=== PATIENT | male | born 1935 | race African-American/Black ===

== ENCOUNTER 2020-10-04 13:56 | Observation (INO) | payer MEDICARE ==
[2020-10-04 14:45] LABS: ALT (SGPT) 44 U/L (8-55); AST (SGOT) 32 U/L (5-34); Alkaline Phosphatase 42 U/L (40-110); Anion Gap 14 mmol/L (10-20); BUN (Urea Nitrogen) 21 mg/dL (8.4-25.7); Bilirubin, Total 0.3 mg/dL (0.2-1.2); Calc. Creatinine Clearance 0 mL/min (70-130); Calcium 8.5 mg/dL (7.8-10.44); Carbon Dioxide 21 mmol/L (23-31); Chloride 112 mmol/L (98-107); Globulin 3.3 g/dL (2.4-3.5); Glucose 65 mg/dL (83-110); Potassium 4.2 mmol/L (3.5-5.1); Protein, Total 6.3 g/dL (5.8-8.1); Sodium 143 mmol/L (136-145)
[2020-10-04 14:48] LABS: PTT 20.6 sec (22.0-33.0)
[2020-10-04 14:51] LABS: #Monocytes 0.5 10x3/uL (0.0-1.1); #Neutrophils 1.1 10x3/uL (1.5-8.4); %Basophils 0.7 % (0.0-2.0); %Eosinophils 1.4 % (0.0-6.0); %Lymphocytes 39.4 % (18.0-47.0); %Monocytes 17.3 % (0.0-10.0); %Neutrophils 40.5 % (40.0-75.0); Hemoglobin 9.7 g/dL (13.5-17.5); Mean Corpuscular HGB CONC 33.4 g/dL (32.0-36.0); Mean Corpuscular Hemoglobin 30.9 pg (27.0-33.0); Mean Corpuscular Volume 92.4 fl (81.2-95.1); Mean Platelet Volume 10.2 fl (7.4-10.4); Platelet Count 219 10x3/uL (150-450); RBC Distribution Width 17.7 % (11.5-14.5); Red Blood Cell (RBC) Count 3.14 10x6/uL (4.32-5.72); White Blood Cell (WBC) Count 2.8 10x3/uL (3.5-10.5)
[2020-10-04] MEDS ORDERED: Aspirin 325 MG TAB ONE (15:42)
[2020-10-04] MEDS ORDERED: Acetaminophen 325 MG TAB PO PRN (16:08)
[2020-10-04] MEDS ORDERED: Ondansetron PF 4 MG/2 ML Vial IVP PRN (16:08)
[2020-10-04 18:41] VITALS: BMI 19.6
[2020-10-04] MEDS ORDERED: Sodium Chloride 0.9% 1,000 ML IV SCH (19:30)
[2020-10-04] MEDS ORDERED: Atorvastatin Calcium 40 MG TAB PO SCH (21:00)
[2020-10-04] MEDS: Aggrenox 200-25mg CAP PO SCH (21:04)
[2020-10-05 06:22] LABS: Hemoglobin 8.3 g/dL (13.5-17.5); Mean Corpuscular HGB CONC 33.7 g/dL (32.0-36.0); Mean Corpuscular Hemoglobin 31.4 pg (27.0-33.0); Mean Corpuscular Volume 93.2 fl (81.2-95.1); Mean Platelet Volume 10.6 fl (7.4-10.4); Platelet Count 186 10x3/uL (150-450); RBC Distribution Width 17.7 % (11.5-14.5); Red Blood Cell (RBC) Count 2.64 10x6/uL (4.32-5.72); White Blood Cell (WBC) Count 2.3 10x3/uL (3.5-10.5)
[2020-10-05 06:27] LABS: ALT (SGPT) 41 U/L (8-55); AST (SGOT) 23 U/L (5-34); Albumin 2.6 g/dL (3.4-4.8); Alkaline Phosphatase 39 U/L (40-110); Anion Gap 13 mmol/L (10-20); BUN (Urea Nitrogen) 18 mg/dL (8.4-25.7); Bilirubin, Total 0.2 mg/dL (0.2-1.2); Calc. Creatinine Clearance 44 mL/min (70-130); Calcium 7.9 mg/dL (7.8-10.44); Carbon Dioxide 19 mmol/L (23-31); Chloride 116 mmol/L (98-107); Cholesterol 108 mg/dl (< 200 Desired); Globulin 2.5 g/dL (2.4-3.5); Glucose 84 mg/dL (83-110); HDL Cholesterol 36 mg/dL (>60 Neg Risk); LDL Cholesterol, Calculated 62 mg/dL; Protein, Total 5.1 g/dL (5.8-8.1); Sodium 144 mmol/L (136-145); Triglycerides 50 mg/dL (Less than 150)
[2020-10-05 08:03] LABS: MDiff Complete? YES
[2020-10-05 08:08] LABS: Eosinophils 4 % (0-10); Lymphocytes 40 % (21-51); Neutrophil 41 % (42-75)
[2020-10-05] MEDS: Aggrenox 200-25mg CAP PO SCH (08:08)
[2020-10-05 08:09] LABS: Monocytes 14 % (0-10)
[2020-10-05 08:10] LABS: Ovalocytes SLIGHT = 2-5 cells (100X) (0-1/hpf); Platelet Morphology Comment Appears Adequate
[2020-10-05] MEDS ORDERED: Enoxaparin Sodium 40 MG/0.4 ML SYRINGE SC SCH (09:00)
[2020-10-05 13:31] LABS: SARS-CoV-2 PCR by NAA Not Detected (NotDetected)
[2020-10-05 16:27] VITALS: BP 123/78; TEMP 97.6
== END 2020-10-05 16:27 | disposition home or self-care (01) ==
LOC: CSHERS 13:56 → CSHTELE 15:47 → UNDOADMOB 17:48 → CSHTELE 17:48 → INTOOBSV 17:48
PROVIDERS: ADMIT Internal Medicine; ATTEND Internal Medicine
DX: R47.81 Slurred speech (principal); I95.9 Hypotension, unspecified; Z86.73 Personal history of transient ischemic attack (TIA), and cerebral infarction without residual deficits; Z79.82 Long term (current) use of aspirin; Z79.899 Other long term (current) drug therapy; C90.00 Multiple myeloma not having achieved remission; D63.8 Anemia in other chronic diseases classified elsewhere; E78.5 Hyperlipidemia, unspecified; Z20.822 Contact with and (suspected) exposure to COVID-19
CPT/HCPCS: 70450; 70551; 71045; 80053 ×2; 80061; 83036; 84484; 85025 ×2; 85610; 85730; 93005; 94760; 96372; 97116; 97139 ×3; 99285; G0378 ×3; U0003; U0005; 87635; J1650; J7050